=== PATIENT | female | born 1995 | race Caucasian/White ===

== ENCOUNTER 2023-06-07 18:37 | Inpatient (IN) | payer MEDICAID ==
[2023-06-07] VITALS (117 sets, daily range): BP systolic 119; BP diastolic 86; PULSE 106; TEMP 98.4; O2SAT 87–100
[~2023-06-07] VITALS: Ht 152.4 cm; Wt 80.1 kg
[~2023-06-07 18:37] MED LIST: 00186-0370-20 IH; FLOVENT 220MCG7.9 GM IH; P-D NATAL W/FOL1 TAB PO; PREDNISONE20 MG PO; PROAIR HFA0.09 MG/AC IH; RT SPIRIVA18 MCG IH
[2023-06-07 19:00] LABS: ARTERIAL BLD GAS O2 SATURATION 99.3 % (92-100); ARTERIAL BLD GAS TCO2 CT 28.8; ARTERIAL BLOOD GAS BASE EXCESS -4.5 (-2-2); ARTERIAL BLOOD GAS HCO3 26.5 meq/L (22-26); ARTERIAL BLOOD GAS PCO2 76.5 mmHg (35-45); ARTERIAL BLOOD GAS PO2 281.4 mmHg (80-100); ARTERIAL BLOOD GAS pH 7.16 (7.35-7.45)
[2023-06-07 19:10] LABS: HEMOGLOBIN 15.7 g/dl (12.5-16.0); MEAN CELL VOLUME 94 fl (80.0-100.0); MEAN CORPUSCULAR HEMOGLOBIN 30 pg (27-31); MEAN CORPUSCULAR HGB CONC 31 g/dl (33.0-37.0); MEAN PLATELET VOLUME 9.8 fl (7.4-10.4); PLATELET COUNT 395 K/mm3 (130-400); REDCELL DISTRIBUTION WIDTH-CV 12.8 % (11.5-14.5)
[2023-06-07 19:23] LABS: ALANINE AMINOTRANSFERASE 16 U/L (0-55); ALBUMIN 3.6 gm/dL (3.5-5.0); ALKALINE PHOSPHATASE 74 U/L (40-150); ANION GAP 11 mmol/L (7-16); AST,SGOT 18 U/L (5-34); BILIRUBIN,TOTAL 0.9 mg/dL (0.2-1.2); BLOOD UREA NITROGEN 13 mg/dL (7-19); C-REACTIVE PROTEIN 2.31 mg/dL (0.00-0.50); CALCIUM 9.5 mg/dL (8.4-10.2); CARBON DIOXIDE 22 mmol/L (22-29); CHLORIDE 105 mmol/L (98-107); CREATININE, serum 0.84 mg/dL (0.57-1.11); GLUCOSE 199 mg/dL (70-99); MAGNESIUM 2.2 mg/dL (1.6-2.6); POTASSIUM 4.9 mmol/L (3.5-4.5); SODIUM 138 mmol/L (136-145); TOTAL PROTEIN 7.4 gm/dL (6.2-8.1)
[2023-06-07 19:29] LABS: BAND 4 % (0-10); BASOPHIL 1 % (0-2); EOSINOPHIL 5 % (0-4); LYMPHOCYTE 31 % (20.0-51.0); NEUTROPHILS 52 % (42.0-75.2)
[2023-06-07 19:30] LABS: HYPOCHROMIA 1+; PLATELET ESTIMATE NORMAL (NORMAL)
[2023-06-07 19:39] LABS: TROPONIN-I < 0.010 ng/mL (0.00-0.033)
[2023-06-07 19:53] LABS: ARTERIAL BLD GAS O2 SATURATION 98.7 % (92-100); ARTERIAL BLD GAS TCO2 CT 23.9; ARTERIAL BLOOD GAS BASE EXCESS -3.5 (-2-2); ARTERIAL BLOOD GAS HCO3 22.5 meq/L (22-26); ARTERIAL BLOOD GAS PO2 142.1 mmHg (80-100); ARTERIAL BLOOD GAS pH 7.33 (7.35-7.45)
[2023-06-07] MEDS ORDERED: BUSPAR10 MG PO (21:21)
[2023-06-07] MEDS ORDERED: PROAIR HFA0.09 MG/AC IH (21:21)
--- NOTE | 2023-06-07 21:35 | NUR ---
PATIENT ARRIVED TO UNIT VIA BED FROM ER. PATIENT ARRIVED ON ROOM AIR. PATIENT'S BOYFRIEND AT BEDSIDE. PATIENT ARRIVED WITH PHONE, SOCKS, PANTS, JACKET, RING, AND BREATHING TREATMENT. ADVISED PATIENT TO SEND VALUABLES HOME WITH BOYFRIEND.
[2023-06-08] VITALS (412 sets, daily range): BP systolic 92–111; BP diastolic 52–71; PULSE 87–110; TEMP 97.9–98.5; O2SAT 90–100
[2023-06-08 05:49] LABS: HEMATOCRIT 40.3 % (37.0-47.0); MEAN CELL VOLUME 91 fl (80.0-100.0); MEAN CORPUSCULAR HEMOGLOBIN 30 pg (27-31); MEAN CORPUSCULAR HGB CONC 33 g/dl (33.0-37.0); MEAN PLATELET VOLUME 9.5 fl (7.4-10.4); PLATELET COUNT 312 K/mm3 (130-400); RED BLOOD COUNT 4.44 M/mm3 (4.10-5.30); REDCELL DISTRIBUTION WIDTH-CV 12.6 % (11.5-14.5)
[2023-06-08 06:05] LABS: CALCIUM 8.7 mg/dL (8.4-10.2); CREATININE, serum 0.6 mg/dL (0.57-1.11); POTASSIUM 4.3 mmol/L (3.5-4.5)
[2023-06-08 06:11] LABS: HEMOGLOBIN 13.4 g/dl (12.5-16.0)
[2023-06-08 06:21] LABS: COLLECTION METHOD CLEAN CATCH
[2023-06-08 06:42] LABS: TRICYCLIC ANTIDEPRESS URINE NEGATIVE (NEGATIVE)
[2023-06-08 06:49] LABS: BAND 2 % (0-10); LYMPHOCYTE 8 % (20.0-51.0); NEUTROPHILS 90 % (42.0-75.2); PLATELET ESTIMATE NORMAL (NORMAL)
[2023-06-08 06:58] LABS: PH 6.5 (5.0-8.5); URINE APPEARANCE Hazy (CLEAR/HAZY); URINE BLOOD Negative (NEGATIVE); URINE COLOR Yellow (YELLOW); URINE GLUCOSE Negative (NEGATIVE); URINE KETONE 2+ (NEGATIVE); URINE NITRATE Negative (NEGATIVE); URINE PROTEIN(semi-quant) 1+ (NEGATIVE); URINE UROBILINOGEN 0.2 E.U/dL (0.2-1.0)
[2023-06-08 06:59] LABS: URINE BACTERIA Many /hpf (NONE SEEN)
[2023-06-08] MEDS ORDERED: PROAIR HFA0.09 MG/AC IH (10:28)
--- NOTE | 2023-06-08 10:41 | NUR ---
Patient transfered to the medical floor via wheelchair. Ambulated to the toilet prior to transfer. Alert and oriented and steady on feet. No concerns at this time. Notified reveiving RN of arrival. Left call light beside patient and bed alarm activated.
--- NOTE | 2023-06-08 10:57 | NUR ---
SW met with patient to discuss discharge planning. SW notes patient had blankets covering her head and did not remove them during the conversation. Patient reports she does not have a place to stay, no PCP. SW asked twice if patient knew about the [facility] that is free for people without insurance. Patient did not respond either time. SW asked if patient has a preferred pharmacy. Patient did not respond. SW exited the room and will follow up later to complete the assessment.
--- NOTE | 2023-06-08 11:16 | NUR ---
PATIENT IS A NEW ICU TRANSFER TO THE FLOOR. ASSESSMENT COMPLETE. VSS, BUT BILATERUL UPPER LOBES HAVE INSP/EXP WHEEZING. PATIENT DOES HAVE ASTHMA. USES AN INHALER AT HOME. PATIENT IS NOT COMPLAINING OF ANY PAIN AT THIS TIME. INTS ON LH AND RAC NOTED. X3 BED RAILS UP, WITH BED ALARM ON.
--- NOTE | 2023-06-09 02:23 | NUR ---
patient lying in bed, alert and oriented x4. pt denies chest pain and shortness of breath. IV in RAC and LW are patent, sites are clean dry and intact. no remarkable skin findings noted. pt mentioned boyfriend to bring in clothing, pt and boyfriend educated on making sure no substances are brought or used within the hospital, both verbally understood. pt has no further needs, questions, or concerns at this time. ambulating with steady gait. call light within reach. will continue to monitor.
[2023-06-09 03:02] VITALS: BP 106/68; PULSE 92; TEMP 98
[2023-06-09 07:02] VITALS: BP 114/73; PULSE 78; TEMP 98.1
[2023-06-09 07:57] LABS: CALCIUM 9.3 mg/dL (8.4-10.2); CREATININE, serum 0.67 mg/dL (0.57-1.11)
[2023-06-09 08:00] LABS: BASO # 0.1 K/mm3 (0.0-0.2); BASO % 0.3 % (0.0-2.0); EOS # 0.1 K/mm3 (0.0-0.7); EOS % 0.6 % (0.0-4.0); GRAN # 10.6 K/mm3 (1.4-6.5); GRAN % 67.6 % (42.2-75.2); HEMATOCRIT 38.9 % (37.0-47.0); HEMOGLOBIN 12.8 g/dl (12.5-16.0); LYMPH # 3.8 K/mm3 (1.2-3.4); LYMPH % 23.9 % (20.0-51.0); MEAN CELL VOLUME 91 fl (80.0-100.0); MEAN CORPUSCULAR HEMOGLOBIN 30 pg (27-31); MEAN CORPUSCULAR HGB CONC 33 g/dl (33.0-37.0); MEAN PLATELET VOLUME 10.1 fl (7.4-10.4); MONO # 1.1 K/mm3 (0.1-0.6); MONO % 7.2 % (1.7-9.3); PLATELET COUNT 320 K/mm3 (130-400); RED BLOOD COUNT 4.28 M/mm3 (4.10-5.30); REDCELL DISTRIBUTION WIDTH-CV 12.8 % (11.5-14.5)
[2023-06-09] MEDS ORDERED: PREDNISONE20 MG PO (09:34)
--- NOTE | 2023-06-09 10:16 | NUR ---
cold storage worker spoke with pt and nickfrienMILLIE espitia [phone] at bedside to complete intake. Pt reports she is homeless and staying anywhere she can. SW verified it that was on the street, in a RV, or other places. She reports "anywhere, the RV got stolen." Pt reports she was in [facility], but has no transportation. Pt confirms she would like to retrieve medications from [facility] and has no difficulties. She states that her insurance covers it. She states she has no PCP, is independent with ADLS, and uses no DME. She reports she uses a nebulizer and needs more. SW states she will talk to the RN and PA. SW provided information on [facility] and speaking with her doctor for additional coupons. SW provided information on [facility] and for establishing a PCP. Pt reports she does not know where she will be next. SW provided neighborhood resources for substance use. SW provided location and information on [facility] in [place]. SW provided that they open their doors at 7pm and confirmed they do not often get full. Pt verbalized understanding and accepted all the resources. She reports she has been to [facility] in the past. BoyfrienMILLIE espitia reports his mother's friends will be transporting them from the hospital. COLTEN asked if pt needed any clothing or hygiene items. MILLIE noted his head on behalf of patient. She began to open up and answer questions regarding what she would need. SW provided toiletries and other personal care items for pt. SW informed pt she spoke with RN and reported they will order an inhaler, but will follow up on a nebulizer. Pt verbalized understanding and said she will eat lunch here and their ride can come after lunch time. SW informed FRANNY Hirsch. Discharge Plan: Homeless, provided resources
--- NOTE | 2023-06-09 12:45 | NUR ---
PATIENT RECEIVED DISCHARGE PAPERWORK. IVS DISCONTINUED. TELEMETRY DC'D ACKNOWLEDGED UNDERSTANDING OF DISCHARGE PAPERWORK, MEDICATIONS, AND FOLLOW UP APPOINTMENTS. DISCHARGED WITH BOYFRIENED TO FAMILY FRIEND WHO WAS PICKING THEM UP. NURSING STAFF ACCOMPANIED.
== END 2023-06-09 12:45 | disposition home or self-care (01) | DRG 871 ==
LOC: COL.ER 18:37 → EDBD 18:39 → MEDICAL 20:16 → ICU 20:16 → MEDICAL 06-08 10:24
PROVIDERS: Emergency Medicine; Internal Medicine; Nurse Practitioner Family; ADMIT Internal Medicine
PROC: 5A09357 Assistance with Respiratory Ventilation, Less than 24 Consecutive Hours, Continuous Positive Airway Pressure (ICD-10-PCS; principal; 2023-06-07)
DX: A41.9 Sepsis, unspecified organism (principal); J96.01 Acute respiratory failure with hypoxia; J96.02 Acute respiratory failure with hypercapnia; J45.901 Unspecified asthma with (acute) exacerbation; E87.20 Acidosis, unspecified; R65.20 Severe sepsis without septic shock; E87.5 Hyperkalemia; Z20.822 Contact with and (suspected) exposure to COVID-19; F17.210 Nicotine dependence, cigarettes, uncomplicated; F12.10 Cannabis abuse, uncomplicated; R73.9 Hyperglycemia, unspecified; F15.10 Other stimulant abuse, uncomplicated; Z91.040 Latex allergy status; Z91.048 Other nonmedicinal substance allergy status
CPT/HCPCS: C9113; J0696; J1100; J1650; J3475; J7030; J7512

== ENCOUNTER 2023-06-28 02:36 | Observation (INO) | payer MEDICAID ==
[~2023-06-28] VITALS: Ht 152.4 cm; Wt 83.0 kg
[2023-06-28] VITALS (7 sets, daily range): BP systolic 98–126; BP diastolic 59–78; PULSE 86–117; TEMP 97.1–98.6
[~2023-06-28 02:36] MED LIST changes: +BUSPAR10 MG PO
[2023-06-28] MEDS ORDERED: methylPREDNISolone Sod Succ 125 MG/2 ML VIAL IV ONE (03:00)
[2023-06-28] MEDS ORDERED: Albuterol/Ipratropium 3 MG-0.5 MG/3 ML Neb Soln IH SCH ×2 (03:00→08:00)
[2023-06-28 03:26] LABS: HEMATOCRIT 45.9 % (37.0-47.0); MEAN CELL VOLUME 92 fl (80.0-100.0); MEAN CORPUSCULAR HEMOGLOBIN 30 pg (27-31); MEAN CORPUSCULAR HGB CONC 33 g/dl (33.0-37.0); MEAN PLATELET VOLUME 9.2 fl (7.4-10.4); PLATELET COUNT 429 K/mm3 (130-400); RED BLOOD COUNT 5.01 M/mm3 (4.10-5.30)
[2023-06-28 03:39] LABS: ALBUMIN 3.7 gm/dL (3.5-5.0); BILIRUBIN,TOTAL 0.7 mg/dL (0.2-1.2); CALCIUM 9.6 mg/dL (8.4-10.2); CREATININE, serum 0.78 mg/dL (0.57-1.11); POTASSIUM 4.2 mmol/L (3.5-4.5); TOTAL PROTEIN 7.1 gm/dL (6.2-8.1)
[2023-06-28 03:47] LABS: BAND 6 % (0-10); EOSINOPHIL 1 % (0-4); LYMPHOCYTE 9 % (20.0-51.0); NEUTROPHILS 79 % (42.0-75.2); PLATELET ESTIMATE NORMAL (NORMAL)
[2023-06-28] MEDS ORDERED: NS 1,000 ML IV ONE (04:30)
[2023-06-28] MEDS ORDERED: Albuterol 0.083% Neb Soln 2.5 MG/3 ML UD IH ONE ×2 (04:30→05:45)
[2023-06-28] MEDS ORDERED: Magnesium Sulfate 4% 50 ML IV ONE (05:30)
[2023-06-28] MEDS ORDERED: Ondansetron 4 MG/2 ML VIAL IV PRN (07:45)
[2023-06-28] MEDS ORDERED: Polyethylene Glycol 3350 17 GM PDS PO PRN (07:45)
[2023-06-28] MEDS ORDERED: Acetaminophen 500 MG TAB PO PRN (07:45)
[2023-06-28] MEDS ORDERED: Albuterol/Ipratropium 3 MG-0.5 MG/3 ML Neb Soln IH PRN (08:00)
[2023-06-28] MEDS ORDERED: dexAMETHasone 10 MG/ML VIAL IV SCH (09:00)
--- NOTE | 2023-06-28 10:00 | NUR ---
Patient to room 306 from the ED by wheelchair. Family at the bedside. Patient A&O, but drowsy. VSS 2L NC O2. IV CDI. Denies pain and discomfort. Nurse oriented the patient to location, call light and room. Nurse assisted the patient to the bathroom with SB assist. Urine sample provided and sent down to lab. No further needs expressed. Call light within reach. Bed alarm on
[2023-06-28 11:15] LABS: TRICYCLIC ANTIDEPRESS URINE NEGATIVE (NEGATIVE)
[2023-06-28] MEDS ORDERED: BENADRYL25 M2 PO (12:02)
[2023-06-28] MEDS ORDERED: hydrOXYzine HCl 25 MG TAB PO PRN (16:00)
--- NOTE | 2023-06-28 20:06 | NUR ---
RECIEVED REPORT FROM FRANNY HOFFMAN.
[2023-06-29] VITALS (9 sets, daily range): BP systolic 100–128; BP diastolic 62–75; PULSE 92–124; TEMP 97.5–98.1
[2023-06-29] MEDS ORDERED: Budesonide Neb Susp 0.5 MG/2 ML AMP IH SCH (07:00)
[2023-06-29] MEDS ORDERED: Fluticasone Diskus 100 MCG **** subs to Budesonide 0.5 MG Nebs IH SCH (07:00)
--- NOTE | 2023-06-29 08:51 | NUR ---
Patient resting in bed quietly, stated aggitation d/t boyfriend being removed after visiting hours last night. Patient was uncooperative with assessment and verbally expressed her concerns stating "I wish you people would let me sleep. I'm so sick of this". Educated patient that vital signs and assessment needed to be completed but they would be performed as quickly as possible. Patient lying in bed, call mcgovern within reach, waiting for breakfast.
[2023-06-29 09:05] LABS: HEMATOCRIT 42.9 % (37.0-47.0); HEMOGLOBIN 14.5 g/dl (12.5-16.0); MEAN CELL VOLUME 89 fl (80.0-100.0); MEAN CORPUSCULAR HEMOGLOBIN 30 pg (27-31); MEAN CORPUSCULAR HGB CONC 34 g/dl (33.0-37.0); MEAN PLATELET VOLUME 9.6 fl (7.4-10.4); PLATELET COUNT 358 K/mm3 (130-400); RED BLOOD COUNT 4.81 M/mm3 (4.10-5.30); REDCELL DISTRIBUTION WIDTH-CV 12.8 % (11.5-14.5)
[2023-06-29 09:18] LABS: CALCIUM 9.5 mg/dL (8.4-10.2); CREATININE, serum 0.7 mg/dL (0.57-1.11); POTASSIUM 4.2 mmol/L (3.5-4.5)
[2023-06-29 09:29] LABS: BAND 2 % (0-10); LYMPHOCYTE 7 % (20.0-51.0); NEUTROPHILS 89 % (42.0-75.2); PLATELET ESTIMATE NORMAL (NORMAL)
[2023-06-29] MEDS ORDERED: PROAIR HFA0.09 MG/AC IH (16:19)
[2023-06-29] MEDS ORDERED: 00186-0372-20 IH (16:19)
[2023-06-29] MEDS ORDERED: PREDNISONE20 MG PO (16:22)
--- NOTE | 2023-06-29 17:16 | NUR ---
Director Cpg met with patient to discuss discharge planning. Patient's significant other, Ky is at bedside. Patient was recently admitted at this hospital 06/07/23-06/09/23 and discharge home. Patient has not seen a PCP since then but advised she was set up with an appointment at the [facility] on 07/10/[address] Bateman. Patient advised she picked up her Prednisone prescription from [facility] after discharge and took it as prescribed. Patient has a nebulizer, but advised she could use a new one. SW encouraged patient to discuss this with Hospitalist so a scipt could be sent for a new one. Patient has a positive UDS for methamphetamines and marijuana. Patient is established with a therapist, Elyssa Headley with [facility]. SW asked patient where she has been staying and she just shrugged. Patient advised she just stays here and there. Ky advised some of the places they stay are "not safe" as there is drug use going on. SW discussed [facility] and [facility], patient is aware of both. When SW asked how she can help patient, patient stated that she wanted to leave. SW received a call from Hospitalist later indicating that patient is interested in a "sober house". SW called patient and spoke with her by phone. SW advised there are open beds at [facility] in [place] and patient stated she had a friend that went there. Patient still wants to leave today, but requested SW send [facility] a referral. Patient wants to gather her belongings and talk with her son before she would go to rehab. SW contacted [facility] Admissions and faxed referral. SW was advised they would contact patient to follow up. Discharge Plan: Home
== END 2023-06-29 17:22 | disposition home or self-care (01) ==
LOC: COL.ER 02:36 → MEDICAL 07:33
PROVIDERS: Emergency Medicine; Physician Assistant; ADMIT Internal Medicine
DX: J45.901 Unspecified asthma with (acute) exacerbation (principal); D72.829 Elevated white blood cell count, unspecified; F19.10 Other psychoactive substance abuse, uncomplicated; F41.9 Anxiety disorder, unspecified; F17.210 Nicotine dependence, cigarettes, uncomplicated; J96.01 Acute respiratory failure with hypoxia
CPT/HCPCS: G0378; J1100; J1650; J2930; J3475; J7030